=== PATIENT | male | born 1985 | race American Indian/Alaskan Native ===

== ENCOUNTER 2017-04-01 06:06 | Emergency (ER) | payer BC ==
[2017-04-01] MEDS ORDERED: Sodium Chloride 0.9% 10 ML Syringe FLUSH PRN (07:08)
[2017-04-01] MEDS ORDERED: Ondansetron 4 MG/2 ML SDV IVPUSH ONE (07:08)
[2017-04-01] MEDS ORDERED: Ketorolac 30 MG/ML SDV IVPUSH ONE (07:10)
[2017-04-01] MEDS ORDERED: HYDROmorphone 0.5 MG/0.5 ML SYRINGE IV ONE (07:10)
[2017-04-01] MEDS ORDERED: Sodium Chloride 0.9% 1,000 ML IV SCH (07:15)
[2017-04-01] MEDS ORDERED: HYDROmorphone 0.5 MG/0.5 ML SYRINGE ONE (07:40)
--- NOTE | 2017-04-01 07:46 | EDM.PDOC ---
ED HPI GENERAL MEDICAL PROBLEM - General Chief Complaint: Flank Pain Stated Complaint: LEFT FLANK PAIN Time Seen by Provider: 04/01/17 07:00 Source of Information: Reports: Patient History Limitations: Reports: No Limitations - History of Present Illness INITIAL COMMENTS - FREE TEXT/NARRATIVE: The patient presents with low back pain. This started a couple days ago when he was riding in a pickup. He denies any injury. He has no history of kidney stones. The pain got worse this morning. He denies fever, chills, cough, chest pain, shortness of breath, abdominal pain, nausea or vomiting. He has no dysuria or hematuria. He has no health problems. Onset: Gradual Duration: Day(s): (2) Location: Reports: Back (Left flank) Quality: Reports: Sharp Severity: Moderate Improves with: Reports: None Worsens with: Reports: None Associated Symptoms: Reports: No Other Symptoms Left Flank Pain Score (Numeric/FACES): 7 - Related Data Allergies Allergy/AdvReac Type Severity Reaction Status Date / Time No Known Allergies Allergy Verified 04/01/17 06:35 Home Meds: Home Meds Lisinopril [Zestril] 20 mg PO DAILY 04/01/17 [History] metFORMIN [Glucophage] 1,000 mg PO BID 04/01/17 [History] Past Medical History Cardiovascular History: Reports: Hypertension Musculoskeletal History: Reports: Fracture Endocrine/Metabolic History: Reports: Diabetes, Type II - Past Surgical History GI Surgical History: Reports: Cholecystectomy Social & Family History - Tobacco Use Smoking Status *Q: Current Every Day Smoker Years of Tobacco use: 7 Packs/Tins Daily: 1 - Caffeine Use Caffeine Use: Reports: None - Recreational Drug Use Recreational Drug Use: No ED ROS GENERAL - Review of Systems Review Of Systems: See Below Constitutional: Reports: No Symptoms HEENT: Reports: No Symptoms Respiratory: Reports: No Symptoms Cardiovascular: Reports: No Symptoms Endocrine: Reports: No Symptoms GI/Abdominal: Reports: No Symptoms : Reports: Flank Pain (Left) Musculoskeletal: Reports: No Symptoms ED EXAM,LOWER BACK PAIN/INJURY - Physical Exam Exam: See Below Exam Limited By: No Limitations General Appearance: Alert, No Apparent Distress Ears: Normal External Exam Nose: Normal Inspection Head: Atraumatic, Normocephalic Neck: Normal Inspection Respiratory/Chest: No Respiratory Distress, Lungs Clear, Normal Breath Sounds Cardiovascular: Regular Rate, Rhythm, No Edema, No Murmur GI/Abdominal: Soft, Non-Tender, No Organomegaly, No Mass Back Exam: Normal Inspection Extremities: Normal Inspection Course - Vital Signs Last Recorded V/S: Last Vital Signs Temp 96.1 F 04/01/17 06:32 Pulse 75 04/01/17 06:32 Resp 18 04/01/17 06:32 BP 147/92 H 04/01/17 06:32 Pulse Ox 97 04/01/17 06:32 - Orders/Labs/Meds Orders: Active Orders 24 hr Category Date Time Status Peripheral IV Care [RC] . DIRECTED Care 04/01/17 07:09 Active Sodium Chloride 0.9% [Normal Saline] 1,000 ml Med 04/01/17 07:15 Active IV ASDIRECTED Sodium Chloride 0.9% [Saline Flush] Med 04/01/17 07:08 Active 10 ml FLUSH ASDIRECTED PRN ED Antiemetic Medication Reflex [OM.PC] Stat Oth 04/01/17 07:08 Ordered Peripheral IV Insertion Adult [OM.PC] Stat Oth 04/01/17 07:08 Ordered Medication Orders Sodium Chloride (Normal Saline) 1,000 mls @ 125 mls/hr IV ASDIRECTED MARIA FERNANDA Last Admin: 04/01/17 07:49 Dose: 125 mls/hr Sodium Chloride (Saline Flush) 10 ml FLUSH ASDIRECTED PRN PRN Reason: Keep Vein Open Last Admin: 04/01/17 07:53 Dose: 10 ml Labs: Laboratory Tests 04/01/17 04/01/17 04/01/17 Range/Units 06:46 07:25 07:25 WBC 6.71 (4.23-9.07) K/mm3 RBC 4.98 (4.63-6.08) M/mm3 Hgb 14.8 (13.7-17.5) gm/L Hct 42.8 (40.1-51.0) % MCV 85.9 (79.0-92.2) fl MCH 29.7 (25.7-32.2) pg MCHC 34.6 (32.2-35.5) g/dl RDW Std Deviation 38.4 (35.1-43.9) fL Plt Count 186 (163-337) K/mm3 MPV 10.7 (9.4-12.3) fl Neut % (Auto) 52.0 (34.0-67.9) % Lymph % (Auto) 38.3 (21.8-53.1) % [place] % (Auto) 6.9 (5.3-12.2) % Eos % (Auto) 2.2 (0.8-7.0) Baso % (Auto) 0.3 (0.1-1.2) % Neut # (Auto) 3.49 (1.78-5.38) K/mm3 Lymph # (Auto) 2.57 (1.32-3.57) K/mm3 [place] # (Auto) 0.46 (0.30-0.82) K/mm3 Eos # (Auto) 0.15 (0.04-0.54) K/mm3 Baso # (Auto) 0.02 (0.01-0.08) K/mm3 Sodium 136 (136-145) mEq/L Potassium 4.0 (3.5-5.1) mEq/L Chloride 102 (98-107) mEq/L Carbon Dioxide 26 (21-32) mEq/L Anion Gap 12.0 (5-15) BUN 11 (7-18) mg/dL Creatinine 0.9 (0.7-1.3) mg/dL Est Cr Clr Drug Dosing 139.54 mL/min Estimated GFR (MDRD) > 60 (>60) mL/min BUN/Creatinine Ratio 12.2 L (14-18) Glucose 279 H (74-106) mg/dL Calcium 8.7 (8.5-10.1) mg/dL Total Bilirubin 0.3 (0.2-1.0) mg/dL AST 45 H (15-37) U/L ALT 108 H (16-63) U/L Alkaline Phosphatase 130 H (46-116) U/L Total Protein 6.8 (6.4-8.2) g/dl Albumin 3.1 L (3.4-5.0) g/dl Globulin 3.7 gm/dL Albumin/Globulin Ratio 0.8 L (1-2) Lipase 185 (73-393) U/L Urine Color Light yellow (Yellow) Urine Appearance Clear (Clear) Urine pH 6.5 (5.0-8.0) Ur Specific [place] 1.020 (1.005-1.030) Urine Protein Negative (Negative) Urine Glucose (UA) 2+ H (Negative) Urine Ketones Negative (Negative) Urine Occult Blood Negative (Negative) Urine Nitrite Negative (Negative) Urine Bilirubin Negative (Negative) Urine Urobilinogen 0.2 (0.2-1.0) Ur Leukocyte Esterase Negative (Negative) Urine RBC Not seen (0-5) /hpf Urine WBC 0-5 (0-5) /hpf Ur Epithelial Cells Not seen (0-5) /hpf Urine Bacteria Not seen (FEW) /hpf Urine Mucus Few (FEW) /hpf Meds: Medications Generic Name Dose Route Start Last Admin Trade Name Freq PRN Reason Stop Dose Admin Sodium Chloride 1,000 mls @ 125 mls/hr 04/01/17 07:15 04/01/17 07:49 Normal Saline IV 125 mls/hr ASDIRECTED MARIA FERNANDA Administration Sodium Chloride 10 ml 04/01/17 07:08 04/01/17 07:53 Saline Flush FLUSH 10 ml ASDIRECTED PRN Administration Keep Vein Open Discontinued Medications Generic Name Dose Route Start Last Admin Trade Name Freq PRN Reason Stop Dose Admin Hydromorphone HCl 0.5 mg 04/01/17 07:10 04/01/17 07:53 Dilaudid IV 04/01/17 07:11 0.5 mg ONETIME ONE Administration Hydromorphone HCl Confirm 04/01/17 07:40 04/01/17 08:01 Dilaudid Administered 04/01/17 07:41 Not Given Dose 0.5 mg .ROUTE .STK-MED ONE Ketorolac Tromethamine 30 mg 04/01/17 07:10 04/01/17 07:51 Toradol IVPUSH 04/01/17 07:11 30 mg ONETIME ONE Administration Ondansetron HCl 4 mg 04/01/17 07:08 04/01/17 07:49 Zofran IVPUSH 04/01/17 07:09 4 mg ONETIME ONE Administration - Re-Assessments/Exams Free Text/Narrative Re-Assessment/Exam: 04/01/17 07:45 I ordered an IV NS at 125mL/hr, zofran 4mg IV, dilaudid 1mg IV, toradol 30mg IV , labs, UA and a CT of his abdomen and pelvis without contrast to look for a kidney stone. 04/01/17 08:26 His CBC is negative. His Glucose was elevated at 279. His AST was elevated at 45. His ALT was elevated at 108. His alk phos was elevated at 130. His lipase was negative. His UA shows no UTI or blood. His CT shows 2 to 3 very small nonobstructing calculi within the right kidney. No ureteral dilatation or ureteral stone is seen. Fatty infiltration within the liver. Slight increased stool throughout the colon. No additional abnormality is identified on noncontrast CT study of the abdomen and pelvis. He feels better. I feel this is more muscle. I will get him on some flexeril and hydrocodone. I will discharge him home. Departure - Departure Time of Disposition: 08:30 Disposition: Home, Self-Care 01 Condition: Good Clinical Impression: Fatty infiltration of liver Left low back pain Qualifiers: Chronicity: acute Sciatica presence: without sciatica Qualified Code(s): M54.5 - Low back pain - Discharge Information Referrals: PCP,Not In Area [Primary Care Provider] - Sunni Taylor [Physician] - Forms: ED Department Discharge Additional Instructions: Take the flexeril and hydrocodone as needed for pain. Try to reduce your calories and reduce your carb intake. Follow up with your doctor or Dr Taylor. Try some ice on your back. Please return if you are worse. - My Orders Last 24 Hours: My Active Orders 04/01/17 07:08 Sodium Chloride 0.9% [Saline Flush] 10 ml FLUSH ASDIRECTED PRN ED Antiemetic Medication Reflex [OM.PC] Stat Peripheral IV Insertion Adult [OM.PC] Stat 04/01/17 07:09 Peripheral IV Care [RC] . DIRECTED 04/01/17 07:15 Sodium Chloride 0.9% [Normal Saline] 1,000 ml IV ASDIRECTED - Assessment/Plan Last 24 Hours: My Active Orders 04/01/17 07:08 Sodium Chloride 0.9% [Saline Flush] 10 ml FLUSH ASDIRECTED PRN ED Antiemetic Medication Reflex [OM.PC] Stat Peripheral IV Insertion Adult [OM.PC] Stat 04/01/17 07:09 Peripheral IV Care [RC] . DIRECTED 04/01/17 07:15 Sodium Chloride 0.9% [Normal Saline] 1,000 ml IV ASDIRECTED
--- NOTE | 2017-04-01 08:10 | CT ---
CT abdomen and pelvis Technique: Multiple axial sections were obtained from above the dome of the diaphragm inferiorly through the pubic symphysis. Intravenous and oral contrast was not utilized. Study has been performed as a ureteral stone protocol. Comparison: No prior abdominal imaging. Findings: Kidneys show no hydronephrosis. 2 or 3 very small nonobstructing calculi are noted within the mid to upper right kidney. These measure 1.5 mm or less in size. No other abnormal calcifications are seen within the kidneys. No ureteral dilatation or ureteral stone is seen. Visualized lung bases show nothing acute. Diffuse fatty infiltration is seen within the liver. Surgical clips are seen from prior cholecystectomy. Spleen appears within normal limits. Adrenal glands show no nodule. Pancreas is unremarkable. Aorta shows no aneurysmal dilatation. No retroperitoneal adenopathy or mesenteric abnormalities are seen. Small fat-containing umbilical hernia is incidentally noted. Appendix is visualized and appears normal in size. No pelvic mass or adenopathy is seen. No free fluid or inflammatory change is seen. Slight increased stool is seen throughout the colon. Bone window settings were reviewed which appear within normal limits for the patient's age. Impression: 1. 2 or 3 very small nonobstructing calculi within the right kidney. No ureteral dilatation or ureteral stone is seen. 2. Fatty infiltration within the liver. Slight increased stool throughout the colon. 3. No additional abnormality is identified on noncontrast CT study of the abdomen and pelvis. Diagnostic code #2
== END 2017-04-01 08:50 | disposition home or self-care (01) ==
LOC: JD.ED 06:06
DX: K76.0 Fatty (change of) liver, not elsewhere classified (principal); M54.5 Low back pain; I10 Essential (primary) hypertension; E11.9 Type 2 diabetes mellitus without complications; F17.210 Nicotine dependence, cigarettes, uncomplicated; Z79.899 Other long term (current) drug therapy
CPT/HCPCS: 36415; 74176; 80053; 81001; 83690; 85025; 96361; 96374; 96375; 99284; J1170; J1885; J2405; J7040; J7050